=== PATIENT | male | born 1975 ===

== ENCOUNTER 2016-11-16 14:22 | Emergency (ER) | payer OTHER ==
[2016-11-16 14:23] VITALS: BMI 35.7
[2016-11-16 14:34] VITALS: BP 129/98; RESP 16; TEMP 98.3; O2SAT 97
--- NOTE | 2016-11-16 14:39 | ED PDOC ---
Upper Extremity Pain/Injury Time Seen by Provider: 11/16/16 14:27 Chief Complaint (Nursing): Upper Extremity Problem/Injury Chief Complaint (Provider): Left Shoulder Pain History Per: Patient History/Exam Limitations: no limitations Onset/Duration Of Symptoms: Days (3) Current Symptoms Are (Timing): Still Present Additional Complaint(s): Patient is 41 year old male presenting to the emergency department for mild atraumatic left shoulder pain that developed three days ago and worsened two days ago after falling off the couch and landing on his left shoulder. Patient is unable to life arm in any position as a result. Also reports a complaint of painful swelling on the left upper eyelid that developed last week. He denies visual changes, contact lens use, fever, chest pain, shortness of breath, numbness, neck pain, head injury, or loss of consciousness. PCP: none provided. Past Medical History Reviewed: Historical Data, Nursing Documentation, Vital Signs Vital Signs: Last Vital Signs Temp 98.3 F 11/16/16 14:29 Pulse 104 H 11/16/16 14:29 Resp 16 11/16/16 14:29 BP 129/98 H 11/16/16 14:29 Pulse Ox 97 11/16/16 14:29 - Medical History PMH: Diabetes, HTN, Hypercholesterolemia Denies: Chronic Kidney Disease - Surgical History Surgical History: No Surg Hx - Family History Family History: States: Unknown Family Hx, Diabetes - Social History Current smoker - smoking cessation education provided: Yes (less than 10 cigarettes per day) Alcohol: Social Drugs: Denies - Home Medications Home Medications: Ambulatory Orders Medication Instructions Recorded Insulin Human NPH [Humulin N] 15 units SC HS #0 vial 04/07/16 Metoprolol Tartrate [Lopressor] 25 mg PO BID #0 tab 04/07/16 Multivitamins [Hexavitamin] 1 tab PO DAILY #0 tab 04/07/16 Ciprofloxacin HCl [Cipro] 500 mg PO BID #20 tab 05/21/16 Metronidazole [Flagyl] 500 mg PO TID #30 tablet 05/21/16 Tamsulosin [Flomax] 0.4 mg PO DAILY #6 cap 05/21/16 traMADol [Ultram] 50 mg PO Q8 #10 tab 05/21/16 Cyclobenzaprine [Cyclobenzaprine 1 tab PO TID PRN #12 tab 06/20/16 HCl] Ibuprofen [Motrin] 1 tab PO TID PRN #30 tab 06/20/16 oxyCODONE/Acetaminophen [Percocet 1 tab PO Q6 PRN #8 tab 06/20/16 5/325 mg Tab] Erythromycin 0.5% [Erythromycin] 1 applic LEFTEYE Q6 #1 tube 11/16/16 Lidocaine 5% [Lidoderm] 1 ea TD DAILY PRN #15 patch 11/16/16 Meloxicam [Mobic] 1 - 2 tab PO DAILY PRN #30 tab 11/16/16 - Allergies Allergies/Adverse Reactions: Allergies Allergy/AdvReac Type Severity Reaction Status Date / Time No Known Allergies Allergy Verified 06/20/16 08:28 Review of Systems ROS Statement: Except As Marked, All Systems Reviewed And Found Negative Constitutional: Negative for: Fever Eyes: Positive for: Pain (Pain and swelling on left upper eyelid). Negative for : Vision Change, Other (Contact lens use) Cardiovascular: Negative for: Chest Pain Respiratory: Negative for: Shortness of Breath Musculoskeletal: Positive for: Shoulder Pain (Left shoulder pain. Unable to move left arm in any position.). Negative for: Neck Pain Neurological: Negative for: Numbness, Other (Loss of consciousness or head injury) Physical Exam - Reviewed Nursing Documentation Reviewed: Yes Vital Signs Reviewed: Yes - Physical Exam Appears: Positive for: Well, Non-toxic, In Acute Distress (Acute painful distress) Head Exam: Positive for: ATRAUMATIC, NORMAL INSPECTION, NORMOCEPHALIC Skin: Positive for: Normal Color, Warm, Dry Eye Exam: Positive for: EOMI, PERRL, Other (Erythematous papule with minimal surrounding erythema on left upper eyelid.). Negative for: Normal appearance, Periorbital tenderness, Conjunctival injection Neck: Positive for: Normal, Supple Cardiovascular/Chest: Positive for: Chest Non Tender Extremity: Positive for: Tenderness (Moderate tenderness on left upper extremity ), Capillary Refill (Less than 2 seconds on left upper extremity), Other (2+ radial bilateral pulse). Negative for: Deformity (Left lateral shoulder) Neurologic/Psych: Positive for: Alert, Oriented - ECG ECG: Positive for: Interpreted By Me ECG Rhythm: Positive for: Sinus Rhythm. Negative for: ST/T Changes Rate: 96 O2 Sat by Pulse Oximetry: 97 (RA) Pulse Ox Interpretation: Normal - Radiology X-Ray: Interpreted by Me (L shoulder x-ray) X-Ray Interpretation: Other (calcific tendinitis; no fx or dislocation) Medical Decision Making Medical Decision Makin:42 Initial Impression: Left shoulder pain Initial Plan: * EKG * Toradol 15 mg IM * Percocet 2 tab PO * Left Shoulder X-RAY * Reevaluation 15:03 Left shoulder x-ray read by me indicates calcific tendonitis. 15:10 Upon provider reevaluation patient is feeling better, medically stable, and requires no further treatment in the ED at this time. Patient will be discharged with Rx for Erythromycin 1 tube, lidocaine 1 TD, and Mobic 1-2 tabs. Counseling was provided and all questions were answered regarding diagnosis and need for follow up with Dr. Joe Eddy. There is agreement to discharge plan. Return if symptoms persist or worsen. Scribe Attestation: Documented by Aiyana Wright, acting as a scribe for Cade Hurley PA-C. Provider Scribe Attestation: All medical record entries made by the Scribe were at my direction and personally dictated by me. I have reviewed the chart and agree that the record accurately reflects my personal performance of the history, physical exam, medical decision making, and the department course for this patient. I have also personally directed, reviewed, and agree with the discharge instructions and disposition. Disposition - Clinical Impression Clinical Impression: Shoulder tendonitis, Chalazion - Patient ED Disposition Is Patient to be Admitted: No Counseled Patient/Family Regarding: Studies Performed, Diagnosis - Disposition Referrals: [facility] [Outside] Joe Eddy III, MD [Staff Provider] - Disposition: Routine/Home Disposition Time: 15:10 Condition: STABLE Additional Instructions: Follow up with ortho for further evaluation. Prescriptions: Erythromycin 0.5% [Erythromycin] 1 applic LEFTEYE Q6 #1 tube Lidocaine 5% [Lidoderm] 1 ea TD DAILY PRN #15 patch PRN Reason: pain Meloxicam [Mobic] 1 - 2 tab PO DAILY PRN #30 tab PRN Reason: Pain Instructions: Calcific Tendinitis (ED) Print Language: BHUTANESE
[2016-11-16] MEDS ORDERED: Oxycodone/Acetaminophen 5/325 mg Tab PO STA (14:42)
[2016-11-16] MEDS ORDERED: Oxycodone/Acetaminophen 5/325 mg Tab ONE (15:04)
[2016-11-16 15:21] VITALS: PULSE 96
--- NOTE | 2016-11-16 16:13 | RAD ---
PROCEDURE: Radiographs of the Left Shoulder HISTORY: trauma COMPARISON: No prior. FINDINGS: BONES: Normal. No fracture. JOINTS: Normal. Glenohumeral and acromioclavicular joints preserved. No osteoarthritis. SOFT TISSUES: Normal. OTHER FINDINGS: None. IMPRESSION: Normal radiographs of the left shoulder.
--- NOTE | 2016-11-17 16:57 | CARD ---
APPROVED REPORT EKG Measurement Heart [id number] <Conclusion> Normal sinus rhythm Low voltage QRS Possible Anterolateral infarct, age undetermined Inferior infarct, age undetermined Abnormal ECG
== END 2016-11-16 15:26 | disposition home or self-care (01) ==
LOC: H.ER 14:22
DX: M75.32 Calcific tendinitis of left shoulder (principal); H00.19 Chalazion unspecified eye, unspecified eyelid; E11.9 Type 2 diabetes mellitus without complications; E78.00 Pure hypercholesterolemia, unspecified; I10 Essential (primary) hypertension; M75.90 Shoulder lesion, unspecified, unspecified shoulder